=== PATIENT | female | born 1975 | race Caucasian/White ===

== ENCOUNTER 2017-05-08 02:36 | Emergency (ER) | payer BC ==
[~2017-05-08] VITALS: Ht 167.6 cm; Wt 114.0 kg
[2017-05-08] MEDS ORDERED: ipratropium/albuterol 3ml nebule NEB ONE (03:10)
[2017-05-08] MEDS ORDERED: dexamethasone 4mg tablet PO ONE (03:10)
[2017-05-08] MEDS ORDERED: ALBU8HFA PO (03:14)
[2017-05-08 03:37] VITALS: BP 134/99
== END 2017-05-08 03:42 | disposition home or self-care (01) ==
LOC: ER 02:38
DX: J45.901 Unspecified asthma with (acute) exacerbation (principal); J06.9 Acute upper respiratory infection, unspecified; F17.200 Nicotine dependence, unspecified, uncomplicated; Z88.8 Allergy status to other drugs, medicaments and biological substances
CPT/HCPCS: 94640; 94760; 99283; J8540